=== PATIENT | male | born 1975 | race Caucasian/White ===

== ENCOUNTER 2021-03-22 11:14 | Emergency (ER) | payer OTHER ==
[~2021-03-22] VITALS: Ht 185.4 cm; Wt 80.9 kg
[2021-03-22 11:27] VITALS: BP 135/82
--- NOTE | 2021-03-22 11:37 | RAD ---
EXAMINATION: Left fifth finger radiograph. VIEWS: PA view of the left hand and 2 views of the left fifth digit. COMPARISON: None INDICATION:45 years, Male, left fifth digit injury. FINDINGS: No acute fracture, dislocation or subluxation. No bone erosion or periosteal reaction. Soft tissue sw elling about the left fifth digit. IMPRESSION: No acute osseous process of the left fifth digit. Electronically signed by: Jose Mcbride MD (03/22/2021 11:35 AM) [id number]
[2021-03-22] MEDS ORDERED: DIPH,PERTUSS(ACELL),TET VAC/PF 0.5 ML SYRINGE. VAX IM ONE ×2 (12:14→12:30)
[2021-03-22] MEDS ORDERED: TETANUS AND DIPHTHERIA TOX/PF 0.5 ML VIAL. VAX IM ONE (12:15)
[2021-03-22] MEDS ORDERED: BACITRACIN ZINC TOPICAL OINT PACKET. TP ONE (12:17)
[2021-03-22] MEDS ORDERED: NEOM28OI21 TP (12:23)
[2021-03-22] MEDS ORDERED: SULF1TAB24 PO (12:23)
[2021-03-22] MEDS ORDERED: CEPH500C PO (12:23)
--- NOTE | 2021-03-22 12:24 | PHYS DOC ---
Past History Past Surgical History: No Surgical History Alcohol Use: None General Adult EDM: Chief Complaint: LACERATION/AVULSION HPI: HPI: 45-year-old male denies any significant past medical history presents the ED with female significant other, (patient consents to his/her/their knowledge and involvement in pts' medical care), complaints of left fifth finger pain stating "it won't stop bleeding," c/o crush injury to the finger that occurred at 5 PM last night ( > 24 hour ago). Cannot recall last tetanus. Review of Systems: Review of Systems: Constitutional: Denies fever or chills Eyes: Denies change in visual acuity HENT: Denies nasal congestion or sore throat Respiratory: Denies cough or shortness of breath Cardiovascular: Denies chest pain or edema GI: Denies abdominal pain, nausea, vomiting, bloody stools or diarrhea : Denies dysuria Musculoskeletal: Denies back pain or joint pain Integument: Denies rash Neurologic: Denies headache, focal weakness or sensory changes Endocrine: Denies polyuria or polydipsia Lymphatic: Denies swollen glands Psychiatric: Denies depression or anxiety Current Medications: Current Meds: Current Medications Medications (Trade) Dose Ordered Sig/Brice Start Time Stop Time Status Last Admin Dose Admin Bacitracin (Bacitracin Topical Pkt) 1 pkt STK-MED ONCE 03/22/21 12:17 03/22/21 12:18 DC Diphtheria/ Pertussis/Tetanus Vacc (ADACEL TDap SYRINGE) 0.5 ml STK-MED ONCE 03/22/21 12:14 03/22/21 12:14 DC Tetanus/ Diphtheria Toxoids Adsorbed (Tenivac Vial) 0.5 ml ONCE ONCE 03/22/21 12:15 03/22/21 12:16 UNV Allergies: Allergies: Allergies Uncoded Allergies Type Severity Reaction Last Updated Verified PCN Allergy Unknown 03/22/21 Physical Exam: PE: Constitutional: Well developed, well nourished, no acute distress, non-toxic appearance. HENT: Normocephalic, atraumatic, Eyes: EOMI, conjunctiva normal, no discharge. Neck: Normal range of motion, supple, Cardiovascular: S1/2 present, regular rhythm Lungs & Thorax: Speaking in full sentences, bilateral equal chest rise, no tachypnea or increased work of breathing Abdomen: soft, no tenderness, Skin: Warm, dry, no erythema, no rash. [] Back: No tenderness, no CVA tenderness. [] Extremities: No tenderness, no cyanosis, no lower extremity edema Neurologic: Alert and oriented X 3, normal motor function, normal sensory function, no focal deficits noted. [] Psychologic: Affect normal, judgement normal, mood normal. [] Current Patient Data: Vital Signs: Vital Signs Date Time Temp Pulse Resp B/P (MAP) Pulse Ox O2 Delivery O2 Flow Rate FiO2 03/22/21 11:27 97.3 71 20 135/82 97 EKG: EKG: [] Radiology/Procedures: Radiology/Procedures: IMAGING REPORT Signed PATIENT: BONITA CHAPARRO ACCOUNT: [id number] : 1975 LOCATION: ER AGE: 45 SEX: M EXAM STATUS: REG ER ORD. PHYSICIAN: NEELIMA THURMAN DO REASON: left pinky/5th digit, crush injury PROCEDURE: FINGER(S) LEFT EXAMINATION: Left fifth finger radiograph. VIEWS: PA view of the left hand and 2 views of the left fifth digit. COMPARISON: None INDICATION:45 years, Male, left fifth digit injury. FINDINGS: No acute fracture, dislocation or subluxation. No bone erosion or periosteal reaction. Soft tissue swelling about the left fifth digit. IMPRESSION: No acute osseous process of the left fifth digit. 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 Risk Scores: Score 0 - 3: 2.5% MACE over next 6 weeks - Discharge Home Score 4 - 6: 20.3% MACE over next 6 weeks - Admit for Clinical Observation Score 7 - 10: 72.7% MACE over next 6 weeks - Early Invasive Strategies Course & Med Decision Making: Course & Med Decision Making Pertinent Labs and Imaging studies reviewed. (See chart for details) Will discharge home with strict ED return precautions were given for []. Encouraged urgent outpatient follow-up with PMD and hand surgery within 1 week. Life-threatening processes were considered but are low suspicion at this time, given history, physical exam and ED workup. Pt was educated on all prescription medications and adverse effects. All patient's questions were answered and pt was stable at time of discharge. Life/limb-threatening differential includes but is not limited to, trauma (fracture, dislocation, laceration, compartment syndrome, tendon or ligament injury), neurovascular injury or deficitcva/tia, infection (osteomyelitis, abscess, cellulitis, septic arthritis, necrotizing fasciitis), deep vein thrombosis, renal/cardiac/liver disease, medication adverse effect, lymphedema/anasarca, vascular insufficiency or malignancy, I have spoken with the patient and/or caregivers. I explained the patient's condition, diagnoses and treatment plan based on the information available to me at this time. I have answered the patient and/or caregiver's questions and addressed any concerns. The patient and/or caregivers have a good understanding of patient's diagnosis, condition and treatment plan as can be expected at this point. Vital signs have been stable. Patient's condition is stable and appropriate for discharge from the emergency department. Patient will pursue further outpatient evaluation with primary care physician or other designated or consulting physician as outlined in the discharge instructions. The patient and/or caregivers are agreeable to this plan of care and follow-up instructions have been explained in detail. The patient and/or caregivers have received these instructions in written form and have expressed an understanding of the discharge instructions. The patient and/or caregivers are aware that any significant change of condition or worsening of symptoms should prompt immediate return to this or the closest emergency department or call to 911. Shayla Disclaimer: Shayla Disclaimer: This electronic medical record was generated, in whole or in part, using a voice recognition dictation system. Departure Departure: Impression: Primary Impression: Laceration of finger Additional Impressions: Crushing injury of finger, left Need for Tdap vaccination Contusion of finger, left Disposition: HOME / SELF CARE / HOMELESS Condition: STABLE Referrals: SARA PACHECO APRN (PCP) for routine care Patient Instructions: Crush Injury, Fingers or Toes, VIS, Tetanus, Diphtheria, and Pertussis (Tdap) - CDC, Wound Care, [id number] Additional Instructions: [facility] FOR DEFIINITIVE MANAGEMENT WITHIN THE NEXT 7 DAYS Appointments may be made with Bud Kingsley MD, Rick Nieves MD, Keith Davis MD or Baljinder aMria MD, by calling [phone] EMERGENCY DEPARTMENT GENERAL DISCHARGE INSTRUCTIONS Thank you for coming to [facility] (ED) today and trusting us with you care. We trust that you had a positivie experience in our Emergency Department. If you wish to speak to the department management, you may call the director at [phone]. YOUR FOLLOW UP INSTRUCTIONS ARE FOLLOWS: 1. Do you have a private Doctor? If you do not have a private doctor, please ask for a resource list of physicians or clinics that may be able to assist you with follow up care. 2. The Emergency Physician has interpreted your x-rays. The X-Ray specialist will also review them. If there is a change in the findings, you will be notified in 48 hours when at all possible. ADDITIONAL INSTRUCTIONS AND INFORMATION: 1. Your care today has been supervised by a physician who is specially trained in emergency care. Many problems require more than one evaluation for a complete diagnosis and treatment. We recommend that you schedule your follow up appointment as recommended to ensure complete treatment of you illness or injury. If you are unable to obtain follow up care and continue to have a problem, or if your condition worsens, we recommend that you return to the ED. 2. We are not able to safely determine your condition over the phone nor are we able to give sound medical advice over the phone. For these safety reasons, if you call for medical advice we will ask you to come to the ED for further evaluation. 3. If you have any questions regarding these discharge instructions please call the ED at [phone]. SAFETY INFORMATION: In the interest of safety, wellness, and injury prevention; we encourage you to wear your sealbelt, if you smoke; quite smoking, and we encourage family to use a protective helmet for bicycling and other sporting events that present an increased risk for head injury. IF YOUR SYMPTOMS WORSEN OR NEW SYMPTOMS DEVELOP, OR YOU HAVE CONCERNS ABOUT YOUR CONDITION; OR IF YOUR CONDITION WORSENS WHILE YOU ARE WAITING FOR YOUR FOLLOW UP APPOINTMENT; EITHER CONTACT YOUR PRIMARY CARE DOCTOR, THE PHYSICIAN WHOSE NAME AND NUMBER YOU WERE GIVEN, OR RETURN TO THE ED IMMEDIATELY. Scripts Neomycn/Baci Zn/Pmyx Bs/Pramox (Triple Antibioti-Pain Rlf Oint) 28 Gm Oint...g. 28 GM TP TID PRN for PAIN for 4 Days, #1 MISC Prov: NEELIMA THURMAN DO 03/22/21 Sulfamethoxazole/Trimethoprim (BACTRIM DS TABLET) 1 Each Tablet 1 TAB PO BID for finger laceration for 10 Days, #20 TAB 0 Refills Prov: NEELIMA THURMAN DO 03/22/21 Cephalexin (CEPHALEXIN) 500 Mg Capsule 1 CAP PO QID for rash for 10 Days, #40 CAP Prov: NEELIMA THURMAN DO 03/22/21 NEELIMA THURMAN DO Mar 22, 2021 12:24
[2021-03-22] MEDS ORDERED: NEOMY/BACITR/POLYMYXIN OINT PACKET. TP ONE (12:30)
== END 2021-03-22 12:32 | disposition home or self-care (01) ==
LOC: ER 11:14
DX: S61.217A Laceration without foreign body of left little finger without damage to nail, initial encounter (principal); Z88.0 Allergy status to penicillin; X58.XXXA Exposure to other specified factors, initial encounter; Y93.89 Activity, other specified; Y92.89 Other specified places as the place of occurrence of the external cause; Y99.8 Other external cause status
CPT/HCPCS: 73140; 90471; 90715; 99283